=== PATIENT | female | born 1940 | race Caucasian/White ===

== ENCOUNTER 2019-03-25 22:37 | Emergency (ER) | payer MEDICARE, BC ==
[2019-03-25] MEDS ORDERED: predniSONE 20 MG Tab PO ONE (23:09)
--- NOTE | 2019-03-25 23:17 | EDM.PDOC ---
ED HPI GENERAL MEDICAL PROBLEM - General Chief Complaint: Lower Extremity Injury/Pain Stated Complaint: GOUT Time Seen by Provider: 03/25/19 22:50 Source of Information: Reports: Patient History Limitations: Reports: No Limitations - History of Present Illness INITIAL COMMENTS - FREE TEXT/NARRATIVE: 78-year-old female who developed gout in her second toe on the left foot a few weeks ago was treated with prednisone and it resolved. Her uric acid was checked in the clinic and it was mildly elevated. Over the past 2-3 days she has redeveloped gout in her large toe on the left foot, and it became very painful and swollen tonight. She does not take anti-inflammatories because of chronic kidney disease. No fevers or chills. No inflamed joints elsewhere. No trauma. Onset: Gradual Duration: Day(s): (Over the past 2-3 days) Location: Reports: Lower Extremity, Left Worsens with: Reports: Movement Associated Symptoms: Reports: No Other Symptoms Left Toe-Hailux Pain Score (Numeric/FACES): 9 - Related Data Allergies Allergy/AdvReac Type Severity Reaction Status Date / Time adhesive tape Allergy Rash Verified 03/25/19 22:52 Home Meds: Home Meds Lisinopril/Hydrochlorothiazide [Lisinopril-Hctz 10-12.5 mg Tab] 10 - 12.5 mg PO ASDIRECTED 04/30/14 [History] Simvastatin [Zocor] 20 mg PO BEDTIME 04/30/14 [History] amLODIPine Besylate [Amlodipine Besylate] 2.5 mg PO BID 04/30/14 [History] Past Medical History HEENT History: Reports: Impaired Vision Cardiovascular History: Reports: High Cholesterol, Hypertension Genitourinary History: Reports: Renal Disease 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: Musculoskeletal History: Reports: Back Pain, Chronic, Gout Hematologic History: Reports: Anemia Oncologic (Cancer) History: Reports: Breast, Uterine - Past Surgical History Female Surgical History: Reports: Hysterectomy Oncologic Surgical History: Reports: Mastectomy Other Oncologic Surgeries/Procedures: R side mastectomy Social & Family History - Family History Family Medical History: Unobtainable - Tobacco Use Smoking Status *Q: Never Smoker - Caffeine Use Caffeine Use: Reports: Coffee - Recreational Drug Use Recreational Drug Use: No Review of Systems - Review of Systems Review Of Systems: See Below Constitutional: Denies: Fever Respiratory: Reports: No Symptoms Cardiovascular: Reports: No Symptoms GI/Abdominal: Reports: No Symptoms Skin: Reports: Erythema (Erythema around the MP joint of the large toe left foot ) Neurological: Denies: Paresthesia ED EXAM, GENERAL - Physical Exam Exam: See Below Exam Limited By: No Limitations General Appearance: Alert, Mild Distress (Patient is fairly uncomfortable) Respiratory/Chest: No Respiratory Distress Extremities: Other (Exam is otherwise limited to the left lower extremity. She has moderate swelling and erythema around the MP joint of the large toe left foot, and exquisite tenderness to any palpation or passive range of motion of the toe) Psychiatric: Anxious Skin Exam: Erythema (Around the left foot as mentioned) Course - Vital Signs Last Recorded V/S: Last Vital Signs Temp 97.2 F 03/25/19 22:58 Pulse 77 03/25/19 22:58 Resp 16 03/25/19 22:58 BP 158/70 H 03/25/19 22:58 Pulse Ox 97 03/25/19 22:58 - Orders/Labs/Meds Meds: Medications Discontinued Medications Generic Name Dose Route Start Last Admin Trade Name Cayla PRN Reason Stop Dose Admin Prednisone 60 mg 03/25/19 23:09 03/25/19 23:13 Prednisone PO 03/25/19 23:10 60 mg ONETIME ONE Administration - Re-Assessments/Exams Free Text/Narrative Re-Assessment/Exam: 03/25/19 23:15 Patient was given 60 mg of by mouth prednisone, and a prescription to continue taking prednisone 50 mg daily for the next 5 days. She has a follow-up appointment with her primary provider in 7 days. I also gave her 10 hydrocodone for extra pain control. I did suggest that 1 or 2 doses of anti-inflammatory such as ibuprofen or Aleve would probably have more benefit than risk. Departure - Departure Time of Disposition: 23:25 Disposition: Home, Self-Care 01 Clinical Impression: Gout attack Qualifiers: Gout site: foot Gout etiology: unspecified cause Laterality: left Qualified Code(s): M10.9 - Gout, unspecified - Discharge Information Instructions: Gout, [id number] Referrals: Lucy Campuzano DO [Primary Care Provider] - Forms: ED Department Discharge Care Plan Goals: Take 5 pills of prednisone with your first meal for 5 consecutive days. Consider a few doses of anti-inflammatory such as ibuprofen or Aleve and add stronger pain medication if needed. Recheck with your primary doctor as scheduled, or recheck sooner if not improving satisfactorily after 2-3 days.
== END 2019-03-25 23:25 | disposition home or self-care (01) ==
LOC: JP.ED 22:37
DX: M10.9 Gout, unspecified (principal); I10 Essential (primary) hypertension; E78.00 Pure hypercholesterolemia, unspecified; Z86.2 Personal history of diseases of the blood and blood-forming organs and certain disorders involving the immune mechanism; Z79.899 Other long term (current) drug therapy
CPT/HCPCS: 99283; A9270

== ENCOUNTER 2025-01-17 19:27 | Emergency (ER) | payer MEDICARE, BC ==
[2025-01-17] MEDS ORDERED: Sodium Chloride 0.9% 10 ML Syringe FLUSH PRN (20:41)
[2025-01-17 20:55] LABS: BASOPHILS ABSOLUTE AUTO 0.09 K/uL (0.00-0.10); EOSINOPHILS ABSOLUTE AUTO 0.64 K/uL (0.00-0.40); EOSINOPHILS PERCENT AUTO 7.2 % (0.0-5.4); HEMATOCRIT 35.2 % (34.3-46.0); HEMOGLOBIN 11.8 g/dL (11.2-15.5); IMMATURE GRAN PERCENT AUTO 0.2 % (0.0-0.7); LYMPHOCYTES ABSOLUTE AUTO 2.19 K/uL (0.8-3.3); LYMPHOCYTES PERCENT AUTO 24.7 % (11.4-47.7); MEAN CORPUSCULAR HEMOGLOBIN 30.9 pg (31.6-35.5); MEAN CORPUSCULAR HGB CONC 33.5 g/dL (31.6-35.5); MEAN CORPUSCULAR VOLUME 92.1 fL (81.4-99.0); MONOCYTES ABSOLUTE AUTO 0.97 K/uL (0.20-0.90); MONOCYTES PERCENT AUTO 10.9 % (3.3-12.6); NEUTROPHILS ABSOLUTE AUTO 4.97 K/uL (1.0-7.6); PLATELET COUNT,PLT 232 K/uL (130-375); RED BLOOD CELL COUNT 3.82 M/uL (3.77-5.24); WHITE BLOOD CELL COUNT,WBC 8.9 K/uL (3.2-11.0)
[2025-01-17 20:56] LABS: IMMATURE GRAN ABSOLUTE AUTO 0.02 K/uL (0.00-0.23)
[2025-01-17 21:20] LABS: A/G RATIO 1.1 (1.2-2.2); ALANINE AMINOTRANSFERASE,ALT 25 U/L (12-78); ALBUMIN 3.5 g/dL (3.4-5.0); ALKALINE PHOSPHATASE 92 U/L (46-116); ANION GAP 14.9 mmol/L (5.0-14.0); ASPARTATE AMNIOTRANSFERASE,AST 22 U/L (15-37); BILIRUBIN TOTAL 0.9 mg/dL (0.2-1.0); BLOOD UREA NITROGEN,BUN 23 mg/dL (7-18); CALCIUM 9.3 mg/dL (8.5-10.1); CARBON DIOXIDE,CO2 25 mmol/L (21-32); CHLORIDE,CL 99 mmol/L (100-108); CREATININE 1.4 mg/dL (0.6-1.0); EST CRCL DRUG DOSING (CG) 25.63 mL/min; ESTIMATED GFR 38 mL/min (>60); GLUCOSE RANDOM 99 mg/dL (74-106); POTASSIUM,K 3.9 mmol/L (3.6-5.2); PROTEIN TOTAL,TP 6.7 g/dL (6.4-8.2); SODIUM,NA 135 mmol/L (140-148); TROPONIN I HIGH SENSITIVITY 11.2 pg/mL (<=60.3)
== END 2025-01-17 22:40 | disposition home or self-care (01) ==
LOC: JP.ED 19:27
DX: R20.2 Paresthesia of skin (principal); I12.9 Hypertensive chronic kidney disease with stage 1 through stage 4 chronic kidney disease, or unspecified chronic kidney disease; N18.30 Chronic kidney disease, stage 3 unspecified; E78.00 Pure hypercholesterolemia, unspecified; Z90.710 Acquired absence of both cervix and uterus; Z91.048 Other nonmedicinal substance allergy status; Z79.899 Other long term (current) drug therapy; Z79.02 Long term (current) use of antithrombotics/antiplatelets
CPT/HCPCS: 36415; 70450; 80053; 84484; 85025; 93005; 93010; 99283; 99284

== ENCOUNTER 2025-01-26 09:52 | Emergency (ER) | payer MEDICARE, BC | END 2025-01-26 14:03 | disposition home or self-care (01) | LOC: JP.ED 09:52 | DX: M54.12 Radiculopathy, cervical region (principal); I12.9 Hypertensive chronic kidney disease with stage 1 through stage 4 chronic kidney disease, or unspecified chronic kidney disease; N18.9 Chronic kidney disease, unspecified; E78.00 Pure hypercholesterolemia, unspecified; J44.9 Chronic obstructive pulmonary disease, unspecified; Z87.891 Personal history of nicotine dependence; Z86.73 Personal history of transient ischemic attack (TIA), and cerebral infarction without residual deficits; Z79.899 Other long term (current) drug therapy; Z91.048 Other nonmedicinal substance allergy status | CPT/HCPCS: 72141; 99284; A9270 ==

== ENCOUNTER 2025-01-27 18:05 | Emergency (ER) | payer MEDICARE, BC ==
[2025-01-27] MEDS: diphenhydrAMINE 50 MG/ML SDV IVPUSH ONE (18:18)
[2025-01-27 18:19] LABS: BASOPHILS ABSOLUTE AUTO 0.03 K/uL (0.00-0.10); BASOPHILS PERCENT AUTO 0.1 % (0.1-1.3); EOSINOPHILS ABSOLUTE AUTO 0.05 K/uL (0.00-0.40); EOSINOPHILS PERCENT AUTO 0.2 % (0.0-5.4); IMMATURE GRAN ABSOLUTE AUTO 0.17 K/uL (0.00-0.23); IMMATURE GRAN PERCENT AUTO 0.8 % (0.0-0.7); LYMPHOCYTES ABSOLUTE AUTO 2.20 K/uL (0.8-3.3); LYMPHOCYTES PERCENT AUTO 10.4 % (11.4-47.7); MONOCYTES ABSOLUTE AUTO 1.89 K/uL (0.20-0.90); MONOCYTES PERCENT AUTO 8.9 % (3.3-12.6); NEUTROPHILS ABSOLUTE AUTO 16.78 K/uL (1.0-7.6); NEUTROPHILS PERCENT AUTO 79.6 % (40.0-78.1); PLATELET COUNT,PLT 309 K/uL (130-375); RED BLOOD CELL COUNT 4.35 M/uL (3.77-5.24); WHITE BLOOD CELL COUNT,WBC 21.1 K/uL (3.2-11.0)
[2025-01-27 18:22] LABS: BASE EXCESS ARTERIAL -1.2 mm/L; BICARBONATE,ARTERIAL 21.8 mmol/L (22.0-26.0); O2 SATURATION ARTERIAL 98.9 % (95.0-98.0); OXYHEMOGLOBIN 96.0 %; PCO2 ARTERIAL 33.0 mmHg (35.0-42.0); PO2 ARTERIAL 123.0 mmHg (75.0-100.0); TOTAL HEMOGLOBIN 13.9 g/dL (12.0-16.0)
[2025-01-27 18:32] LABS: BLOOD UREA NITROGEN,BUN 30 mg/dL (7-18); CARBON DIOXIDE,CO2 23 mmol/L (21-32); CHLORIDE,CL 92 mmol/L (100-108); CREATININE 1.6 mg/dL (0.6-1.0); ESTIMATED GFR 32 mL/min (>60); GLUCOSE RANDOM 138 mg/dL (74-106); POTASSIUM,K 4.1 mmol/L (3.6-5.2); SODIUM,NA 126 mmol/L (140-148)
[2025-01-27] MEDS: Iopamidol 755 Mg/ML 100 ML Bottle IV SCH (18:43)
[2025-01-27] MEDS ORDERED: Propofol 200 MG/20 ML SDV ONE (19:05)
[2025-01-27] MEDS: propofoL 1,000 MG/100 ML 100 ML IV SCH (19:20)
[2025-01-27] MEDS: propofoL 1,000 MG/100 ML 100 ML ONE (19:21)
== END 2025-01-27 19:31 ==
LOC: JP.ED 18:05
DX: I63.332 Cerebral infarction due to thrombosis of left posterior cerebral artery (principal); I10 Essential (primary) hypertension; E78.00 Pure hypercholesterolemia, unspecified; Z88.8 Allergy status to other drugs, medicaments and biological substances; Z79.899 Other long term (current) drug therapy; Z90.710 Acquired absence of both cervix and uterus
CPT/HCPCS: 31500; 36415; 36600; 70450; 70496; 70498; 71045; 80048; 82803; 85025; 96365; 96374; 96375; 99291; 99292; J1200; J1630; J2704; Q9967; J3490

== ENCOUNTER 2025-03-13 18:47 | Emergency (ER) | payer MEDICARE, BC ==
[2025-03-13 20:36] LABS: BASOPHILS PERCENT AUTO 0.2 % (0.1-1.3); EOSINOPHILS ABSOLUTE AUTO 0.73 K/uL (0.00-0.40); EOSINOPHILS PERCENT AUTO 7.9 % (0.0-5.4); IMMATURE GRAN ABSOLUTE AUTO 0.05 K/uL (0.00-0.23); IMMATURE GRAN PERCENT AUTO 0.5 % (0.0-0.7); LYMPHOCYTES ABSOLUTE AUTO 0.76 K/uL (0.8-3.3); LYMPHOCYTES PERCENT AUTO 8.2 % (11.4-47.7); MONOCYTES ABSOLUTE AUTO 0.66 K/uL (0.20-0.90); MONOCYTES PERCENT AUTO 7.1 % (3.3-12.6); NEUTROPHILS ABSOLUTE AUTO 7.03 K/uL (1.0-7.6); NEUTROPHILS PERCENT AUTO 76.1 % (40.0-78.1); PLATELET COUNT,PLT 244 K/uL (130-375); RED BLOOD CELL COUNT 3.08 M/uL (3.77-5.24); WHITE BLOOD CELL COUNT,WBC 9.3 K/uL (3.2-11.0)
[2025-03-13 20:43] LABS: BASOPHILS ABSOLUTE AUTO 0.02 K/uL (0.00-0.10)
[2025-03-13 20:58] LABS: A/G RATIO 0.8 (1.2-2.2); ALANINE AMINOTRANSFERASE,ALT 467 U/L (12-78); ASPARTATE AMNIOTRANSFERASE,AST 329 U/L (15-37); BILIRUBIN TOTAL 4.0 mg/dL (0.2-1.0); BLOOD UREA NITROGEN,BUN 20 mg/dL (7-18); CARBON DIOXIDE,CO2 30 mmol/L (21-32); CHLORIDE,CL 91 mmol/L (100-108); CREATININE 1.7 mg/dL (0.6-1.0); EST CRCL DRUG DOSING (CG) 22.03 mL/min; ESTIMATED GFR 30 mL/min (>60); GLUCOSE RANDOM 133 mg/dL (74-106); PROTEIN TOTAL,TP 6.5 g/dL (6.4-8.2); SODIUM,NA 130 mmol/L (140-148)
[2025-03-13 21:01] LABS: LACTIC ACID 1.0 mmol/L (0.4-2.0)
[2025-03-13 21:02] LABS: POTASSIUM,K 2.9 mmol/L (3.6-5.2)
[2025-03-13] MEDS: Potassium Chloride 20 MEQ Tab.ER PO ONE (22:45)
[2025-03-13] MEDS: NS + KCl 20mEq/L 1,000 ML IV SCH (23:04)
== END 2025-03-14 02:10 | disposition other institution (70) ==
LOC: JP.ED 18:47
DX: K81.0 Acute cholecystitis (principal); I10 Essential (primary) hypertension; Z88.8 Allergy status to other drugs, medicaments and biological substances; Z79.899 Other long term (current) drug therapy; Z79.82 Long term (current) use of aspirin; Z90.49 Acquired absence of other specified parts of digestive tract
CPT/HCPCS: 36415; 74176; 80053; 82728; 83605; 83690; 84478; 85025; 86140; 96365; 96366; 96368; 99285; A9270; J2543; J3480

== ENCOUNTER 2025-03-31 11:08 | Emergency (ER) | payer MEDICARE, BC ==
[2025-03-31 12:21] LABS: BASOPHILS ABSOLUTE AUTO 0.08 K/uL (0.00-0.10); BASOPHILS PERCENT AUTO 0.8 % (0.1-1.3); EOSINOPHILS ABSOLUTE AUTO 0.61 K/uL (0.00-0.40); EOSINOPHILS PERCENT AUTO 5.8 % (0.0-5.4); IMMATURE GRAN ABSOLUTE AUTO 0.06 K/uL (0.00-0.23); IMMATURE GRAN PERCENT AUTO 0.6 % (0.0-0.7); LYMPHOCYTES ABSOLUTE AUTO 1.60 K/uL (0.8-3.3); LYMPHOCYTES PERCENT AUTO 15.2 % (11.4-47.7); MONOCYTES ABSOLUTE AUTO 0.97 K/uL (0.20-0.90); MONOCYTES PERCENT AUTO 9.2 % (3.3-12.6); NEUTROPHILS ABSOLUTE AUTO 7.22 K/uL (1.0-7.6); NEUTROPHILS PERCENT AUTO 68.4 % (40.0-78.1); PLATELET COUNT,PLT 267 K/uL (130-375); RED BLOOD CELL COUNT 3.48 M/uL (3.77-5.24); WHITE BLOOD CELL COUNT,WBC 10.5 K/uL (3.2-11.0)
[2025-03-31 12:46] LABS: A/G RATIO 0.9 (1.2-2.2); ALANINE AMINOTRANSFERASE,ALT 42 U/L (12-78); ASPARTATE AMNIOTRANSFERASE,AST 20 U/L (15-37); BILIRUBIN TOTAL 2.1 mg/dL (0.2-1.0); BLOOD UREA NITROGEN,BUN 21 mg/dL (7-18); CARBON DIOXIDE,CO2 32 mmol/L (21-32); CHLORIDE,CL 96 mmol/L (100-108); CREATININE 1.6 mg/dL (0.6-1.0); EST CRCL DRUG DOSING (CG) 23.41 mL/min; ESTIMATED GFR 32 mL/min (>60); GLUCOSE RANDOM 132 mg/dL (74-106); POTASSIUM,K 3.6 mmol/L (3.6-5.2); PROTEIN TOTAL,TP 7.6 g/dL (6.4-8.2); SODIUM,NA 136 mmol/L (140-148)
[2025-03-31 12:48] LABS: TROPONIN I HIGH SENSITIVITY 9.7 pg/mL (<=60.3)
[2025-03-31 13:37] LABS: APPEARANCE,URINE CLEAR (CLEAR); GLUCOSE,URINE NEGATIVE (NEGATIVE); OCCULT BLOOD,URINE NEGATIVE (NEGATIVE)
[2025-03-31 13:43] LABS: AMPHETAMINES SCREEN, URINE NEGATIVE (NEGATIVE); METHADONE SCREEN, URINE NEGATIVE (NEGATIVE); METHAMPHETAMINES SCREEN, URINE NEGATIVE (NEGATIVE); OXYCODONE SCREEN,URINE NEGATIVE (NEGATIVE); PROPOXYPHENE SCREEN,URINE NEGATIVE (NEGATIVE); THC SCREEN,URINE 50 NG/ML NEGATIVE (NEGATIVE)
== END 2025-03-31 14:33 | disposition home or self-care (01) ==
LOC: JP.ED 11:08
DX: I95.1 Orthostatic hypotension (principal); I12.9 Hypertensive chronic kidney disease with stage 1 through stage 4 chronic kidney disease, or unspecified chronic kidney disease; N18.9 Chronic kidney disease, unspecified; Z90.49 Acquired absence of other specified parts of digestive tract; Z90.710 Acquired absence of both cervix and uterus; Z87.891 Personal history of nicotine dependence; E78.00 Pure hypercholesterolemia, unspecified; J44.9 Chronic obstructive pulmonary disease, unspecified; Z88.8 Allergy status to other drugs, medicaments and biological substances; Z91.048 Other nonmedicinal substance allergy status; Z79.51 Long term (current) use of inhaled steroids; Z79.82 Long term (current) use of aspirin; Z79.899 Other long term (current) drug therapy
CPT/HCPCS: 36415; 70450; 70450-26; 71045; 71045-26; 80053; 80305-QW; 80307; 81003; 83605; 83735; 84484; 85025; 93005; 93010; 99283; 99285